=== PATIENT | female | born 1995 | race African-American/Black ===

== ENCOUNTER → 2019-09-12 13:02 | Outpatient (CLI) | payer BC, SELFPAY ==
--- NOTE | ~2019-09-12 | US_ITS ---
EXAMINATION: US transvaginal EXAM DATE: 09/12/2019 13:23 INDICATION: Missing IUD string. TECHNIQUE: Pelvic transvaginal sonogram was performed. There are multiple grayscale and Doppler imag es available for interpretation. There is no prior study for comparison. FINDINGS: Uterus measures 8.1 x 3.8 x 4.8 cm, with IUD centrally located inside the endometrial cavi ty. Endometrial stripe measures 5 mm, within normal limits. There is no free pelvic fluid. Right adnexa: The ovary measures 4.1 x 2.9 x 3.2 cm and is morphologically normal, contains the domin ant physiologic follicle. Ovarian vascular flow confirmed. Left adnexa: The ovary measures 1.8 x 2.3 x 1.7 cm and is morphologically normal. Ovarian vascular fl ow confirmed. IMPRESSION: 1. IUD in expected position. Reviewed, dictated and finalized at location A.
== END ==
PROVIDERS: Visit Provider Nurse Practitioner
DX: Z30.431 Encounter for routine checking of intrauterine contraceptive device (principal)
CPT/HCPCS: 76830

== ENCOUNTER → 2021-12-28 13:03 | Outpatient (CLI) | payer BC, SELFPAY ==
--- NOTE | ~2021-12-28 | US_ITS ---
EXAMINATION: US pelvic complete w TV DATE: 12/28/2021 13:29 INDICATION: IUD placement Comparison:09/12/2019 TECHNIQUE: Multiple transabdominal and endovaginal sonographic images of the pelvis performed. FINDINGS: The uterus measures 6.7 x 3.2 x 4.6 cm. There is an IUD in the endometrium. The endometrial complex measures 4 mm. The right ovary measures 4.7 x 3 x 3.1 cm and the left ovary measures 2.8 x 1.9 x 1.4 cm. There are small follicles in each ovary. There is a right ovarian cyst measuring 2.8 cm. Normal doppler signal in both ovaries. There is no free fluid in the pelvis. There are no abnormal masses seen on either side. IMPRESSION: 1. Right ovarian cyst measuring 2.8 cm. 2: IUD in expected position in the endometrium. Reviewed, dictated and finalized at location A.
== END ==
LOC: EXPGOSH 13:05 → EXPGOSHRAD 01-01 14:44
PROVIDERS: PCP Obstetrics & Gynecology Gynecology; Visit Provider Obstetrics & Gynecology Gynecology
DX: T83.32XA Displacement of intrauterine contraceptive device, initial encounter (principal); N83.201 Unspecified ovarian cyst, right side
CPT/HCPCS: 76830; 76856